=== PATIENT | female | born 1985 | race Two or more races ===

== ENCOUNTER 2022-01-17 02:42 | Emergency (ER) | payer OTHER ==
[~2022-01-17] VITALS: Ht 157.5 cm; Wt 54.4 kg
[2022-01-17] MEDS ORDERED: PRENATABS FA T1 EACH (02:49)
[2022-01-17] MEDS ORDERED: ECOTRIN81 MG (02:49)
== END 2022-01-17 10:15 | disposition home or self-care (01) ==
LOC: ER 02:42
DX: O21.2 Late vomiting of pregnancy (principal); Z3A.21 21 weeks gestation of pregnancy; M54.50 Low back pain, unspecified

== ENCOUNTER 2022-05-11 13:45 | Inpatient (IN) | payer OTHER ==
[~2022-05-11] VITALS: Ht 157.5 cm; Wt 2.3 kg
[~2022-05-11 13:45] MED LIST: ECOTRIN81 MG; PRENATABS FA T1 EACH
== END 2022-05-18 11:06 | disposition home or self-care (01) | DRG 788 ==
LOC: OB/GYN 05-15 18:57 → LDR 05-15 18:57 → O/R 05-15 20:20 → OB/GYN 05-15 21:36 → LDR 05-29 13:45
PROVIDERS: ADMIT Obstetrics & Gynecology Maternal & Fetal Medicine; ATTEND Obstetrics & Gynecology Maternal & Fetal Medicine
PROC: 4A1HXCZ Monitoring of Products of Conception, Cardiac Rate, External Approach (ICD-10-PCS; 2022-05-15)
PROC: 10D00Z1 Extraction of Products of Conception, Low, Open Approach (ICD-10-PCS; principal; 2022-05-15 19:15)
DX: O36.8130 Decreased fetal movements, third trimester, not applicable or unspecified (principal); O32.1XX0 Maternal care for breech presentation, not applicable or unspecified; Z3A.38 38 weeks gestation of pregnancy; Z37.0 Single live birth; Z20.822 Contact with and (suspected) exposure to COVID-19

== ENCOUNTER 2023-04-25 16:41 | Emergency (ER) | payer OTHER ==
[~2023-04-25] VITALS: Ht 157.5 cm; Wt 49.9 kg
[2023-04-25] MEDS ORDERED: 0.9 % SODIUM CHLORIDE 1,000 ML IV STA (17:51)
[2023-04-25 18:15] LABS: HEMATOCRIT 37.2 % (36.0-45.00); HEMOGLOBIN 12.7 g/dL (12.0-15.00); MEAN CELL VOLUME 96.7 fL (80.00-100.00); MEAN CORPUSCULAR HEMOGLOBIN 33.1 pg (27.00-32.0); MEAN CORPUSCULAR HGB CONC 34.2 g/dl (32.0-36.0); PLATELET COUNT 308 K/uL (150-450); RED BLOOD COUNT 3.85 M/uL (4.00-6.00); RED CELL DISTRIBUTION WIDTH 13.1 % (11.5-14.5)
== END 2023-04-25 19:20 | disposition home or self-care (01) ==
LOC: ER 16:42
PROVIDERS: Emergency Medicine
DX: O20.9 Hemorrhage in early pregnancy, unspecified (principal); Z3A.22 22 weeks gestation of pregnancy

== ENCOUNTER 2024-07-26 10:45 | Day surgery (SDC) | payer OTHER ==
[2024-07-24 15:37] LABS: BASO % 0.4 % (0.1-1.2); EOS # 0.16 (0.04-0.54); EOS % 2.1 % (0.7-7.0); HEMATOCRIT 34.9 % (34.1-44.9); HEMOGLOBIN 11.9 g/dL (11.2-15.7); LYMPH # 1.71 (1.18-3.74); LYMPH % 22.5 % (19.3-53.1); MEAN CORPUSCULAR HEMOGLOBIN 32.2 pg (25.6-32.2); MONO # 0.63 (0.24-0.82); MONO % 8.3 % (4.7-12.5); NEUT # 5.04 (1.56-6.13); NEUT % 66.3 % (34.0-71.1); PLATELET COUNT 331 K/uL (163-369); RED CELL DISTRIBUTION WIDTH 12.4 % (11.6-14.4)
[2024-07-24 15:58] LABS: INR 0.94; PARTIAL THROMBOPLASTIN TIME 26.4 SECONDS (22.0-34.0); PROTHROMBIN TIME 10.3 SECONDS (9.0-11.5)
[2024-07-26] MEDS ORDERED: CEFOXITIN SODIUM 2,000 MG VIAL IV ONE (11:30)
[2024-07-26] MEDS ORDERED: POVIDONE-IODINE 118 ML BOTT TOP ONE (12:31)
[2024-07-26] MEDS ORDERED: MORPHINE SULFATE 4 MG/ML VIAL IV PRN (13:45)
[2024-07-26] MEDS ORDERED: PROMETHAZINE HCL 50 MG/ML AMPUL IM ONE (13:45)
== END 2024-07-26 17:50 | disposition home or self-care (01) ==
LOC: CIR.AMB 10:45 → LAB 14:53 → CIR.AMB 14:59
PROVIDERS: ATTEND Obstetrics & Gynecology Maternal & Fetal Medicine
DX: O02.1 Missed abortion (principal)